=== PATIENT | male | born 1975 | race Caucasian/White ===

== ENCOUNTER 2016-11-28 06:04 | Day surgery (SDC) | payer SELFPAY ==
[~2016-11-28 06:04] MED LIST: NORCO 5/325 TAB1 TAB PO; PROPECIA PO
[2016-11-28 07:16] LABS: ANION GAP 14 mmol/L (0-20); BLOOD UREA NITROGEN 12 mg/dl (6-24); CALCIUM 8.9 mg/dl (8.5-10.5); CARBON DIOXIDE-VENOUS 26 mmol/L (22-32); CHLORIDE 105 mmol/l (96-110); GLUCOSE 108 mg/dL (70-110); SODIUM 141 mmol/L (135-145); eGFR VALUE FOR BLACK 85 mL/Min
[2016-11-28 07:21] LABS: POTASSIUM 4.2 mmol/L (3.7-5.1)
== END 2016-11-28 09:10 ==
LOC: ENDOS 06:04 → SHSC 06:07 → ENDOS 07:55
PROVIDERS: Anesthesiology
PROC: 0DJD8ZZ Inspection of Lower Intestinal Tract, Via Natural or Artificial Opening Endoscopic (ICD-10-PCS; principal; 2016-11-28)
DX: Z12.11 Encounter for screening for malignant neoplasm of colon (principal); K64.8 Other hemorrhoids; Z79.899 Other long term (current) drug therapy; Z80.0 Family history of malignant neoplasm of digestive organs; Z98.52 Vasectomy status; Z98.890 Other specified postprocedural states